=== PATIENT | female | born 1930 | race Caucasian/White ===

== ENCOUNTER → 2018-07-22 16:31 | Emergency (ER) | payer MEDICARE, BC ==
[~2018-07-22 16:31] MED LIST: Albuterol/Ipratropium NEB.SOL* Albuterol 2.5 MG/Ipratropium 0.5 MG 3 ML INH ONE; Dexamethasone IV* 4 MG/ML 1 ML (4 MG) IV SLOW PU ONE; NS 0.9% 1000 ML* 1,000 ML IV ONE
[2018-07-22 19:27] LABS: ABS Basophils 0 10^3/ul (0-0.2); ABS Eosinophils 0.2 10^3/ul (0-0.6); ABS Lymphocytes 0.8 10^3/ul (1.0-4.8); ABS Monocytes 0.8 10^3/ul (0-0.8); ABS Neutrophils 5.1 10^3/ul (1.5-7.7); ABS Nucleated RBC 0 10^3/ul; Eosinophil % 3.2 % (0-6); Hematocrit 42 % (35-47); Hemoglobin 14.1 g/dl (12.0-16.0); Lymphocyte % 11.1 % (25-47); Mean Corpuscular HGB Conc 34 g/dl (31-36); Mean Corpuscular Hemoglobin 32 pg (27-31); Mean Corpuscular Volume 95 fL (80-97); Mean Platelet Volume 8.4 um3 (7.4-10.4); Nucleated Red Blood Cells % 0.1; Platelet Count 229 10^3/ul (150-450); Red Blood Count 4.41 10^6/ul (4.00-5.40); Red Cell Distribution Width 14 % (10.5-15)
[2018-07-22 19:44] LABS: EGFR Non-African American 56.9 (>60)
[2018-07-22 20:45] LABS: Urine Appearance Clear; Urine Blood Negative (Negative); Urine Color Straw; Urine Ketones Negative (Negative); Urine Protein Negative (Negative); Urine Specific Gravity 1.004 (1.010-1.030); Urine Urobilinogen Negative (Negative)
--- NOTE | 2018-07-22 20:49 | ED ---
Complex/Multi-Sys Presentation - HPI Summary HPI Summary: The pt is a 87 y.o F who is presenting to the [facility] with chief complaints of eye pain, and diffuse LILLY. Pt is accompanied by one other person (female). The pt also reports of fatigue, weakness, tongue swelling, cold/chills. Pt denies any urinary symptoms, and chest pain. Pt states she has had trouble swallowing recently and SOB secondary to COPD. She has received endoscopies in the past and reports that she has recently changed her provider. Pt reports visiting [facility] and states her BP was "going down" as well as low electrolyte levels. She has received a Flu shot this last Friday (07/17/18). 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 Trouble "swallowing" and tongue swelling. - Allergies/Home Medications Allergies/Adverse Reactions: Allergies Allergy/AdvReac Type Severity Reaction Status Date / Time alendronate sodium Allergy Unknown Verified 07/22/18 19:01 [From Fosamax] Reaction Details ibandronate sodium Allergy Bleeding Verified 07/22/18 19:01 [From Boniva] lisinopril [From Prinivil] Allergy Difficulty Verified 07/22/18 19:01 Breathing nifedipine [From Procardia] Allergy Unknown Verified 07/22/18 19:01 Reaction Details oxymorphone Allergy Difficulty Verified 07/22/18 19:01 Breathing Home Medications: Home Medications Fosinopril (NF) [Monopril (NF)] 20 mg PO BID 07/22/18 [History Confirmed ] Ipratropium HFA INHALER(NF) [Atrovent Hfa Inhaler(NF)] 1 puff INH BID 07/22/18 [ History Confirmed 07/22/18] Metoprolol Tartrate TAB* [Lopressor TAB*] 25 mg PO BID 07/22/18 [History Confirmed 07/22/18] Oxycodone HCl/Acetaminophen [Percocet 5-325 mg Tablet] 1 tab PO DAILY PRN [History Confirmed 07/22/18] PMH/Surg Hx/FS Hx/Imm Hx Endocrine/Hematology History: Denies: Hx Diabetes Cardiovascular History: Reports: Hx Hypertension Denies: Hx Congestive Heart Failure Respiratory History: Reports: Hx Chronic Obstructive Pulmonary Disease (COPD) - Immunization History Immunizations Up to Date: Yes Infectious Disease History: No Infectious Disease History: Denies: Traveled Outside the [place] in Last 30 Days - Family History Known Family History: Positive: Cardiac Disease - MD (Brother) Family History: No DM - Social History Occupation: Retired Lives: With Family Alcohol Use: Rare Substance Use Type: Reports: None Smoking Status (MU): Former Smoker Review of Systems Positive: Fatigue, Other - Weakness; Cold/chills Eyes: Other - Eye Pain ENT: Other - Tongue swelling; trouble "swallowing" Cardiovascular: Negative Respiratory: Negative Genitourinary: Other - No Urinary symptoms Musculoskeletal: Negative Skin: Negative Neurological: Other - LILLY Psychological: Normal All Other Systems Reviewed And Are Negative: Yes Physical Exam - Summary Physical Exam Summary: Appearance: Well appearing, no pain distress Skin: warm, dry, reflects adequate perfusion Head/face: normal Eyes: EOMI, MANJIT ENT: mucous membranes moist, No oral lesions Neck: supple, non-tender Respiratory: Crackles at left base Cardiovascular: RRR, pulses symmetrical Abdomen: non-tender, soft Bowel Sounds: present Musculoskeletal: normal, strength/ROM intact Neuro: normal, sensory motor intact, A&Ox3 Triage Information Reviewed: Yes Vital Signs On Initial Exam: Initial Vitals Temp Pulse Resp BP Pulse Ox 98.4 F 99 15 174/78 90 07/22/18 16:43 07/22/18 16:43 07/22/18 16:43 07/22/18 16:43 07/22/18 16:43 Vital Signs Reviewed: Yes Diagnostics - Vital Signs Vital Signs Temp Pulse Resp BP Pulse Ox 07/22/18 18:34 99.7 F 82 14 163/79 96 07/22/18 16:43 98.4 F 99 15 174/78 90 - Laboratory Lab Results: Lab Results 07/22/18 07/22/18 07/22/18 Range/Units 19:02 19:16 19:16 WBC 7.0 (3.5-10.8) 10^3/ul RBC 4.41 (4.00-5.40) 10^6/ul Hgb 14.1 (12.0-16.0) g/dl Hct 42 (35-47) % MCV 95 (80-97) fL MCH 32 H (27-31) pg MCHC 34 (31-36) g/dl RDW 14 (10.5-15) % Plt Count 229 (150-450) 10^3/ul MPV 8.4 (7.4-10.4) um3 Neut % (Auto) 73.2 (38-83) % Lymph % (Auto) 11.1 L (25-47) % [place] % (Auto) 12.2 H (0-7) % Eos % (Auto) 3.2 (0-6) % Baso % (Auto) 0.3 (0-2) % Absolute Neuts (auto) 5.1 (1.5-7.7) 10^3/ul Absolute Lymphs (auto) 0.8 L (1.0-4.8) 10^3/ul Absolute Monos (auto) 0.8 (0-0.8) 10^3/ul Absolute Eos (auto) 0.2 (0-0.6) 10^3/ul Absolute Basos (auto) 0 (0-0.2) 10^3/ul Absolute Nucleated RBC 0 10^3/ul Nucleated RBC % 0.1 Sodium 129 L (135-145) mmol/L Potassium 4.0 (3.5-5.0) mmol/L Chloride 88 L (101-111) mmol/L Carbon Dioxide 31 (22-32) mmol/L Anion Gap 10 (2-11) mmol/L BUN 30 H (6-24) mg/dL Creatinine 0.93 (0.51-0.95) mg/dL Est GFR ( Amer) 68.8 (>60) Est GFR (Non-Af Amer) 56.9 (>60) BUN/Creatinine Ratio 32.3 H (8-20) Glucose 89 (70-100) mg/dL Calcium 9.6 (8.6-10.3) mg/dL Total Bilirubin 0.50 (0.2-1.0) mg/dL AST 26 (13-39) U/L ALT 17 (7-52) U/L Alkaline Phosphatase 67 (34-104) U/L Troponin I 0.03 (<0.04) ng/mL B-Natriuretic Peptide 539 H ( - 100) pg/mL Total Protein 6.9 (6.4-8.9) g/dL Albumin 4.1 (3.2-5.2) g/dL Globulin 2.8 (2-4) g/dL Albumin/Globulin Ratio 1.5 (1-3) Result Diagrams: 07/22/18 19:16 07/22/18 19:16 Lab Statement: Any lab studies that have been ordered have been reviewed, and results considered in the medical decision making process. - Radiology Chest X-ray Radiology Interpretation Completed By: ED Physician - CXR reveals Hyperinflation as per ED Physician. Complex Multi-Symp Course/Dx Course Of Treatment: Patient presents with cough, malaise. Chest x-ray shows hyperinflation. BNP is elevated but there is no significant findings consistent with CHF. She likely has mixed bag COPD, CHF and will need outpatient echocardiogram. She was improved here with IV fluids, breathing treatment. A dose of steroids is given as well. She'll be continued on similar outpatient is encouraged to follow up with her primary care physician for reevaluation and outpatient echocardiogram in the short-term. - Diagnoses Differential Diagnoses/HQI/PQRI: Other - Dehydration, UTI, CHF, COPD, pneumonia Provider Diagnoses: COPD (chronic obstructive pulmonary disease), Dehydration, Hyponatremia Discharge - Sign-Out/Discharge Documenting (check all that apply): Patient Departure - Discharge Home - Discharge Plan Condition: Stable Disposition: HOME Prescriptions: Albuterol HFA INHALER* [Ventolin HFA Inhaler*] 1 puff INH BID #1 mdi Azithromycin TAB* [Zithromax TAB (Z-TRACI) 250 mg #6 tabs] 2 tab PO .TODAY, THEN 1 DAILY #1 traci Dexamethasone [Decadron] 4 mg PO DAILY #2 tablet Patient Education Materials: COPD (Chronic Obstructive Pulmonary Disease) (ED) Referrals: Guillermo Casas DO [Primary Care Provider] - Additional Instructions: Call your doctor first thing in the morning to schedule follow-up. Stay well- hydrated. It is recommended that he have outpatient echocardiogram of your heart to evaluate his function. Return with increasing cough, shortness of breath, fever, new symptoms, worse or other concerns. Low-sodium diet. - Billing Disposition and Condition Condition: STABLE Disposition: Home - Attestation Statements Document Initiated by Scribe: Yes Documenting Scribe: Anup Velazquez Provider For Whom Scribe is Documenting (Include Credential): Dr. Dorado Scribe Attestation: Anup Conte, scribed for Dr. Dorado on 07/23/18 at 0137. Scribe Documentation Reviewed: Yes Provider Attestation: The documentation as recorded by the Anup li accurately reflects the service I personally performed and the decisions made by , Dr. Dorado
[2018-07-22 22:27] VITALS: BP 160/88
--- NOTE | 2018-07-23 08:07 | RAD ---
Indication: Weakness. 2 views of the chest including dual energy PA views demonstrates no mediastinal shift. Heart is of normal size and configuration. Lung rachel appear hyperinflated. No prior study is available for comparison. IMPRESSION: Hyperinflated lung rachel. No evidence of active cardiopulmonary disease is noted. R0
== END | disposition home or self-care (01) ==
LOC: ED 16:31
DX: J44.9 Chronic obstructive pulmonary disease, unspecified (principal); E86.0 Dehydration; E87.1 Hypo-osmolality and hyponatremia; I10 Essential (primary) hypertension; Z79.899 Other long term (current) drug therapy; Z87.891 Personal history of nicotine dependence; Z88.8 Allergy status to other drugs, medicaments and biological substances
CPT/HCPCS: 36415; 71046; 80053; 81003; 83880; 84484; 85025; 96361; 96374; 99283; A9270-GY; J1100